=== PATIENT | female | born 1980 ===

== ENCOUNTER 2017-11-20 12:07 | Emergency (ER) | payer BC, OTHER ==
[2017-11-20 12:17] VITALS: BP 119/61
--- NOTE | 2017-11-20 12:49 | RAD ---
INDICATION: RIGHT thumb pain following hyperextension injuries. COMPARISON: No relevant prior exams available on the [facility] for comparison. TECHNIQUE: AP, lateral, and oblique views RIGHT hand. REPORT: Negative for fracture or malalignment. Small bone island at the tuft of the third distal phalanx without concern. No significant arthropathic change. Unremarkable soft tissue contours. IMPRESSION: Negative exam.
--- NOTE | 2017-11-20 13:15 | UC ---
Anoop Adams Gabriel, scribed for [facility] MD on 11/20/17 at 1229 . Hand/Wrist HPI - HPI Summary HPI Summary: This patient is a 37 year old F presenting to [facility] after she injured her right thumb while exercising today. Pt had a similar injury 10 days ago but assumed it was a sprain and let it rest. After reinjuring it today she reports redness and swelling. The patient rates the pain 5/10 in severity. Patient reports hyperextension of the thumb. Pt denies n/v/d. MD note: vital signs stable, afebrile. Visit history noncontributory to present complaint. Nurses note: pt states she bent her rt thumb back about a week and a half ago. pt states she assumed it was sprained so she let it go. she was exercising this am and it strated to hurt more and it now looks more swollen. - History Of Current Complaint Chief Complaint: UCUpperExtremity Stated Complaint: THUMB INJURY Time Seen by Provider: 11/20/17 12:26 Hx Obtained From: Patient Onset/Duration: Lasting Weeks, Still Present, Worse Since - today Severity Initially: Mild Severity Currently: Moderate Pain Intensity: 5 Pain Scale Used: 0-10 Numeric Associated Signs And Symptoms: Positive: Swelling, Redness Related History: Similar Episode/Dx As - Allergies/Home Medications Allergies/Adverse Reactions: Allergies Allergy/AdvReac Type Severity Reaction Status Date / Time No Known Allergies Allergy Verified 11/20/17 12:17 Home Medications: Home Medications NK [No Home Medications Reported] 11/20/17 [History Confirmed 11/20/17] PMH/Surg Hx/FS Hx/Imm Hx Previously Healthy: Yes Other History Of: Negative For: Hepatitis C, Anticoagulant Therapy - Surgical History Surgical History: Yes Surgery Procedure, Year, and Place: back - Family History Known Family History: Negative: Cardiac Disease, Hypertension, Renal Disease, Respiratory Disease, Blood Disorder - Social History Occupation: Employed Full-time Lives: With Family Alcohol Use: Occasionally Substance Use Type: None Smoking Status (MU): Never Smoked Tobacco Review of Systems Skin: Other - redness Gastrointestinal: Negative - N/V/D Musculoskeletal: Other: - right thumb pain and swelling All Other Systems Reviewed And Are Negative: Yes - Comments Additional Review of Systems Comments: Positive: redness and swelling. Negative: n/v/d. Physical Exam - Summary Physical Exam Summary: Appearance: The patient is well-appearing, is in no pain distress, and is well- nourished. Eyes: Conjunctiva are clear. ENT: The hearing is grossly normal, the pharynx is normal, and the TMs are normal. There is no muffled or hoarse voice. Neck: The neck is supple and there is no lymphadenopathy. Respiratory: The chest is nontender. The lungs are clear, there are normal breath sounds, and there is no respiratory distress. Cardiovascular: Heart is regular rate and rhythm. There is no murmur. Abdomen: The abdomen is soft and nontender. There is no organomegaly. Bowel sounds: present Musculoskeletal: Strength is intact. The patient moves all extremities. RUE HAS NORMAL ROM AT ELBOW AND WRIST. FLEXION OF THE RIGHT THUMB CREATES MILD DISCOMFORT. FLEXOR TENDON INTACT. STRESSOR AT ULNAR COLLATERAL LIGAMENT IS NEGATIVE AT RIGHT THUMB. TTP AT THENAR EMINENCE Neurological: The patient is alert. Psychological: The patient displays age appropriate behavior Skin: Negative for rashes. Triage Information Reviewed: Yes Vital Signs: Initial Vital Signs Temp 98.8 F 11/20/17 12:09 Pulse 77 11/20/17 12:09 Resp 18 11/20/17 12:09 BP 119/61 11/20/17 12:09 Pulse Ox 99 11/20/17 12:09 Vital Signs Reviewed: Yes Diagnostics - Radiology thumb xray Radiology Interpretation Completed By: Radiologist - Negative exam. Dr. Timmons has reviewed this report. Hand/Wrist Course/Dx - Course Course Of Treatment: Healthy 37 y/o female with soft tissue injury of the right thumb will use thumb Spica splint and restrict activity until she is pain free. Xray was negative for fracture. Medications have been included in the original chart and reviewed. - Differential Dx/Diagnosis Differential Diagnosis/HQI/PQRI: Other - soft tissue injury vs fracture Provider Diagnoses: thumb injury right hand: sprain of flexor tendon, strain of muscles in the thenar eminence Discharge - Sign-Out/Discharge Documenting (check all that apply): Discharge/Admit/Transfer - Discharge Plan Condition: Stable Disposition: HOME Patient Education Materials: Skier's Thumb (ED) Referrals: No Primary Care Phys,NOPCP [Primary Care Provider] - Additional Instructions: For pain or discomfort use: Ibuprofen 400-600mg PLUS acetaminophen 500mg - 1000mg every 8 hours. Maximum is 3 doses a day. If this dosage is required for more than 5 days, you should re-check with your doctor. PLEASE SEEK CARE AT THE EMERGENCY DEPARTMENT IF SYMPTOMS WORSEN OR IF NEW SYMPTOMS DEVELOP. FOLLOW UP WITH YOUR PRIMARY CARE PHYSICIAN WE DISCUSSED: 1. You have soft tissue injury of your right thumb involving the tendon that bends the thumb and the muscles at the base of the thumb. There is no fracture. 2. Use thumb spica; elevate; warm moist heat in the morning; ice to area after use for acute pain. Use spica until you are pain free for a day. 3. Don't go back to full activity until you are pain free without the splint for 3 days. 4. Call with any questions or concerns. - Billing Disposition and Condition Condition: STABLE Disposition: HOME The documentation as recorded by the Anoop givens Gabriel accurately reflects the service I personally performed and the decisions made by , Satnam Timmons MD.
== END 2017-11-20 13:15 | disposition home or self-care (01) ==
LOC: UCEAST 12:07
DX: S66.011A Strain of long flexor muscle, fascia and tendon of right thumb at wrist and hand level, initial encounter (principal); S63.681A Other sprain of right thumb, initial encounter; X58.XXXA Exposure to other specified factors, initial encounter; Y93.B9 Activity, other involving muscle strengthening exercises; Y92.9 Unspecified place or not applicable
CPT/HCPCS: 99201; G0463